=== PATIENT | male | born 1960 | race Caucasian/White ===

== ENCOUNTER 2016-11-08 16:24 | Inpatient (IN) | payer MEDICARE, MEDICAID ==
[~2016-11-08] VITALS: Ht 198.1 cm; Wt 109.2 kg
--- NOTE | ~2016-11-08 | HP ---
ADMIT: 11/08/2016 RM/LOC: 310 [facility] MR#: [id number] [address] [facility] [place], [place] [address] RAQUEL COLLINS [address] [place] [address] History and Physical SEX: M AGE: 56 : 1960 CORRECTION: 11/20/2016 1302 DATE OF SERVICE: ADDENDUM: Raquel is a 56-year-old male who I accepted in transfer from [facility] with abdominal pain and free air. On arrival, Raquel was hypotensive, tachycardic, quite distended, and having severe abdominal pain. Radiographic review showed a large amount of intra-abdominal free air. The patient is a known quadriplegic. He has recently had issues with pneumonia, had been receiving treatments for pulmonary hygiene, and for the last 24 to possibly up to 48 hours, he has had worsening severe abdominal discomfort and workup was initiated and transfer was obtained. His past medical history, surgical history, allergies, medications, family history, social history, and review of systems are outlined in Zen's note. PHYSICAL EXAMINATION: GENERAL: He is very ill-appearing, definitely in distress with a distended abdomen. CARDIOVASCULAR: He is tachycardic. Heart was regular. LUNGS: Decreased breath sounds throughout. ABDOMEN: Distended and tender to palpation throughout with guarding and rebound. ASSESSMENT AND PLAN: The patient is a 56-year-old with perforated viscus and hypotension, tachycardia, and sepsis. Our plan is for fluid resuscitation. He is a poor IV stick. We will place a central line intraoperatively and plan on exploratory laparoscopy versus laparotomy with possible bowel resection and possible ostomy. Risks and benefits were discussed with the patient and the family, they wish to proceed. Horacio Nathan MD/ snow JOB #: [id number] CC: Horacio Nathan MD, Attending Physician Horacio Nathan MD, Family Physician CORRECTION: 11/20/2016 1302
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
--- NOTE | 2016-12-07 11:41 | DS ---
ADMIT: 11/08/2016 RM/LOC: 310 [facility] MR#: [id number] [address] [facility] [place], [place] [address] RAQUEL COLLINS [address] [place] [address] Discharge Summary SEX: M AGE: 56 : 1960 ADMISSION DATE: 11/08/2016 DISCHARGE DATE: 11/11/2016 ADMITTING DIAGNOSIS: Acute abdomen with perforated viscus. DISMISSAL DIAGNOSES: 1. Perforated pyloric channel gastric ulcer. 2. Quadriplegia. 3. Hypertension. 4. Asthma. 5. Osteoarthritis. 6. Type 2 diabetes. 7. Edema. 8. Sleep apnea. 9. Right leg amputation. 10.Previous tracheostomy with subsequent closure. 11.Lap cholecystectomy. PROCEDURES: 1. Exploratory laparoscopy with laparoscopic closure of pyloric channel gastric ulcer and Zackery patch. 2. Left subclavian vein triple-lumen central line placement. HOSPITAL COURSE: The patient was seen in the Emergency Department and immediately went to surgery. After his procedure, he transferred to the ICU without any complications. He was started on IV antibiotics and was given a morphine [employer] for pain. He was started on a Lb-Synephrine drip. Initially after surgery, the patient was feeling better. His pain was controlled. An NG that was placed intraoperatively was pulled and he was started on clears. Despite his recovery, it was noted the patient was exhausted and requested to rather be comfortable then to proceed with aggressive recovery. We abided by these measures, made him a DNR/DNI, and made him comfort measures with the intent to have him transferred to a penitentiary facility for hospice placement. Then on 11/11/2016, the patient at our facility. FRANCIE Simon / Horacio Nathan MD / ashanti JOB #: [id number] CC: Horacio Nathan MD, Attending Physician Horacio Nathan MD, Family Physician
--- NOTE | 2016-12-07 11:41 | OR ---
ADMIT: 11/08/2016 RM/LOC: 310 [facility] MR#: [id number] [address] [facility] [place], [place] [address] DENNIS RAQUEL Adelaida [address] [place] [address] Operative/Delivery Room Report SEX: M AGE: 56 : 1960 SURGERY DATE: 11/08/2016 SURGEON: Horacio Nathan MD OPERATIONAL RISK CONSULTANT: FRANCIE Simon PRE-PROCEDURE DIAGNOSIS: Acute abdomen with perforated viscus. POSTPROCEDURE DIAGNOSIS: Perforated pyloric channel gastric ulcer. PROCEDURE: Exploratory laparoscopy with laparoscopic closure of pyloric channel gastric ulcer and Zackery patch. Left subclavian vein triple-lumen central line placement. INDICATIONS: The patient is a 56-year-old, obese, quadriplegic, who presented with acute abdominal pain and free air, with clinical findings of acute abdomen, who presents for exploratory laparoscopy. DESCRIPTION OF PROCEDURE: The patient was taken to the operating room. General endotracheal anesthesia was induced. We prepped and draped the left chest. I placed an introducer needle in the left subclavian vein. A wire was threaded without difficulty. The insertion site was enlarged with #11 blade. A dilator was placed over our wire, and our triple-lumen catheter was threaded over our wire with blood return in all three ports, they were aspirated, flushed, and the port was sutured to the skin using 0 silk suture. We then prepped and draped the abdomen. We made a supraumbilical vertical 5 mm skin incision using #11 blade. A retractable 5 mm port was placed within the abdomen and we desufflated the large amount of non foul-smelling air from the intra-abdominal space. Then under direct vision, we placed a camera. We insufflated CO2, placed two left-sided 5 mm ports under direct vision and a right-sided 5 mm port under direct vision. There were just a couple small omental adhesions to the undersurface of the anterior abdominal wall taken down using Endo Shear dissection. There was an adhesion of the stomach up to the anterior abdominal wall, where previous G-tube had been placed. Immediately, we saw a lot of bilious secretions and ascites within the intra- abdominal space and diffuse peritonitis, and immediately was able to see an anterior perforation right at the pyloric channel of the stomach. There was a perforation a little greater than a centimeter in diameter. I closed the perforation with 4-5 separate interrupted 3-0 Polysorb suture, completely and adequately closing this defect. I then used one more 3-0 Polysorb suture creating a Zackery patch incorporating seromuscular bite of the stomach ADMIT: 11/08/2016 RM/LOC: 310 [facility] MR#: [id number] [address] [facility] [address] [place] [id number] RAQUEL COLLINS [facility] [address] [place] [address] Operative/Delivery Room Report SEX: M AGE: 56 : 1960 superiorly and inferiorly, and then grasping some omental fat and pushing it up covering the closure and tightening this fatty omental Zackery patch into place. I then used 3 L of irrigant to clear the bilious ascites within the intra-abdominal space till the irrigant was clear. I injected 0.5% Marcaine at all of our port sites. I placed two round 19-Urdu DARLIN drains in the intra- abdominal space, one down and that was in the left lower 5 mm port site into the pelvis and the second one through right upper quadrant 5 mm port site in the subhepatic space near our perforation site. We sutured these drains into place with 2-0 silk sutures. We closed the two remaining 5 mm port sites with interrupted 4-0 Vicryl subcuticular skin stitches. Wounds were cleaned, dried, and dressed. The patient tolerated the procedure without difficulty. The plan was for probable extubation, and taken to the intensive care unit. Horacio Nathan MD/ snow JOB #: [id number] CC: Horacio Nathan, Attending Physician Horacio Nathan, Family Physician
--- NOTE | 2017-01-09 08:53 | OR ---
ADMIT: 11/08/2016 RM/LOC: 310 [facility] MR#: [id number] [address] [facility] [place], [place] [address] RAQUEL COLLINS [address] [place] [address] Operative/Delivery Room Report SEX: M AGE: 56 : 1960 SURGERY DATE: 11/08/2016 SURGEON: Horacio Nathan MD ADDENDUM: FRANCIE Simon, was the first sampler on this procedure due to the complexity and difficulty of repairing a perforated gastric ulcer laparoscopically. Needed a skilled laparoscopic clinical laboratory assistant to perform this difficult abdominal catastrophe skillfully. Horacio Nathan MD/ modl JOB #: [id number] CC: Horacio Nathan MD, Attending Physician Horacio Nathan MD, Family Physician
== END 2016-11-11 13:30 | disposition expired | DRG 853 ==
LOC: ER 16:24 → SSS 17:32 → 3ICU 18:29
PROVIDERS: ADMIT Surgery
DX: A41.9 Sepsis, unspecified organism (principal); K25.5 Chronic or unspecified gastric ulcer with perforation; R65.21 Severe sepsis with septic shock; G82.50 Quadriplegia, unspecified; Z51.5 Encounter for palliative care; E11.9 Type 2 diabetes mellitus without complications; S14.106S Unspecified injury at C6 level of cervical spinal cord, sequela; V49.9XXS Car occupant (driver) (passenger) injured in unspecified traffic accident, sequela; I10 Essential (primary) hypertension; J45.909 Unspecified asthma, uncomplicated; M19.90 Unspecified osteoarthritis, unspecified site; N20.0 Calculus of kidney; G47.30 Sleep apnea, unspecified; Z89.511 Acquired absence of right leg below knee; Z66 Do not resuscitate; Z79.4 Long term (current) use of insulin